=== PATIENT | female | born 1970 | race Hispanic/Latino ===

== ENCOUNTER 2017-09-24 16:53 | Outpatient (CLI) | payer BC ==
--- NOTE | 2017-09-25 09:22 | XRay Report ---
LUMBOSACRAL SPINE, 3 VIEWS: History: Back pain. Findings: Normal bone mineralization. No compression deformity, malalignment or bone lesion. Moderate to severe disc space narrowing and facet arthropathy are identified at L5-S1. Mild disc space narrowing and facet arthropathy are identified at L4-5. Mild facet arthropathy at the remaining 3 levels. Impression: Lumbar spondylosis which is most pronounced at L5-S1.
--- NOTE | 2017-09-25 09:23 | XRay Report ---
THORACIC SPINE, 2 VIEWS: HISTORY: back pain. Normal bone mineralization. No evidence for compression deformity, malalignment, or bone lesion. The posterior ribs are intact. The paraspinal soft tissues are within normal limits. Minimal anterior spurring is noted in the mid to lower thoracic spine. IMPRESSION: Minimal thoracic spondylosis.
--- NOTE | 2017-09-25 09:24 | XRay Report ---
CERVICAL SPINE, 3 views: History: Neck pain. Findings: Normal bone mineralization. There appears to be straightening of the normal lordosis which could be positional. No evidence for displaced fracture, malalignment or bone lesion. Mild to moderate degenerative disc disease is identified at C6-7. Mild degenerative disc disease is identified at C5-6. The remaining disc levels are within normal limits. The facet joints are unremarkable. Impression: Straightening of the normal lordosis. Mild to moderate degenerative disc disease which is most pronounced at C6-7.
== END 2017-09-24 16:54 | disposition home or self-care (01) ==
LOC: XRAY 16:53
PROVIDERS: ATTEND Orthopaedic Surgery
DX: M50.323 Other cervical disc degeneration at C6-C7 level (principal); M50.322 Other cervical disc degeneration at C5-C6 level; M47.894 Other spondylosis, thoracic region; M47.897 Other spondylosis, lumbosacral region; M12.88 Other specific arthropathies, not elsewhere classified, other specified site
CPT/HCPCS: 72040; 72070; 72100

== ENCOUNTER 2019-02-06 10:04 | Outpatient (CLI) | payer BC ==
--- NOTE | 2019-02-06 22:15 | Magnetic Resonance Report ---
PROCEDURE: MR LUMBAR SPINE WO CON HISTORY: LUMBAR PAIN FINDINGS: MRI lumbar spine was performed using sagittal T1, sagittal T2, sagittal inversion recovery, axial T1 and axial T2-weighted images. These images demonstrate the bone marrow signal is diffusely decreased on T1-weighted images consiste nt with hematopoietic marrow. The conus medullaris lies at the level L1-L2 and appears unremarkable. At T12-L1 and L1-L2 the intervertebral disc is normal in height and T2 signal intensity. There are no posterior disc abnormalities. At L2-L3 there is a minimal posterior disc bulge which does not result in canal stenosis. There is mi ld bilateral neural foraminal narrowing without nerve root impingement. At L3-L4 there are no posterior disc abnormalities. At L4-L5, there is subchondral degenerative endplate edema. There is a posterior disc bulge which mil dly effaces the anterior margin of the thecal sac. There is mild bilateral neural foraminal narrowing without nerve root impingement. At L5-S1 there is subchondral degenerative endplate edema. There is a posterior disc bulge which mild ly effaces the anterior margin of thecal sac. There is mild to moderate bilateral neural foraminal na rrowing without nerve root impingement. IMPRESSION: No fracture is seen in the lumbar spine Subchondral degenerative endplate edema at L4-5 and L5-S1 No evidence of canal stenosis or nerve root impingement This document is electronically signed by Ye West MD., February 06 2019 10:13:34 PM ET
== END 2019-02-06 10:05 | disposition home or self-care (01) ==
LOC: MRI 10:04
PROVIDERS: ATTEND Psychiatry & Neurology Neurology
DX: M51.26 Other intervertebral disc displacement, lumbar region (principal); M48.061 Spinal stenosis, lumbar region without neurogenic claudication
CPT/HCPCS: 72148

== ENCOUNTER 2019-03-08 16:34 | Emergency (ER) | payer BC ==
[2019-03-08 16:42] VITALS: BP 114/70
--- NOTE | 2019-03-08 16:43 | Emergency Department Report ---
Blank Doc - Documentation Documentation: This is a 48-year-old female that presents with urinary symptoms. Denies any flank pain. This initial assessment/diagnostic orders/clinical plan/treatment(s) is/are subject to change based on patient's health status, clinical progression and re- assessment by fellow clinical providers in the ED. Further treatment and workup at subsequent clinical providers discretion. Patient/guardians urged not to elope from the ED as their condition may be serious if not clinically assessed and managed. Initial orders include: 1- Patient sent to [facility] for further evaluation and treatment 2- labs 3- UA
[2019-03-08 17:21] LABS: HCG Qualitative,Urine Negative (Negative)
[2019-03-08 17:24] LABS: Bacteria,Urine 1+ /HPF (Negative); Bilirubin,Urine NEG (Negative); Blood,Urine MOD (Negative); Color,Urine Amber (Yellow); Mucus,Urine 3+ /HPF; Renal Epithelial Cells,Urine 4 /LPF; Urobilinogen,Urine < 2.0 mg/dL (<2.0)
[2019-03-08 17:25] LABS: WBC,Urine > 182.0 /HPF (0.0-6.0)
[2019-03-08 17:52] LABS: Basophils % (Auto) 0.2 % (0.0-1.8); Hematocrit 41.5 % (30.3-42.9); Hemoglobin 13.9 gm/dl (10.1-14.3); Lymphocytes # (Auto) 1.1 K/mm3 (1.2-5.4); Mean Corpuscular HGB Conc 33 % (30-34); Mean Corpuscular Volume 93 fl (79-97); Monocytes # (Auto) 1.4 K/mm3 (0.0-0.8); Monocytes % (Auto) 7.8 % (0.0-7.3); Platelet Count 296 K/mm3 (140-440); Red Blood Count 4.47 M/mm3 (3.65-5.03); Red Cell Distribution Width 13.6 % (13.2-15.2)
[2019-03-08] MEDS ORDERED: NACL 0.9% 1000 ML 1,000 ML IV ONE (18:14)
[2019-03-08 18:19] LABS: Alanine Aminotransferase 33 units/L (7-56); Albumin 4.3 g/dL (3.9-5); BUN/Creatinine Ratio 14; Blood Urea Nitrogen 11 mg/dL (7-17); Calcium 9.2 mg/dL (8.4-10.2); Hemolysis Index 4
--- NOTE | 2019-03-08 19:41 | Emergency Department Report ---
ED Female HPI - General Chief complaint: Urogenital-Female Stated complaint: FEVER/CLOUDY URINE Time Seen by Provider: 03/08/19 16:40 Source: patient Mode of arrival: Ambulatory Limitations: No Limitations - History of Present Illness Initial comments: This is a 48-year-old female who presents to the emergency room with fever, nausea, and cloudy urine for 10 days. Patient states she was initially taken Azo and was seen in urgent care last week and placed on Bactrim for urinary tract infection. Patient states she received Rocephin IM. Patient states fever improved but returned yesterday with nausea without vomiting. She reports lower back pain and left sided abdominal pain. She denies diarrhea, dysuria, urinary frequency, and urgency. MD Complaint: pelvic pain Onset/Timin -: days(s) Location: suprapubic Radiation: non-radiating Severity: moderate Severity scale (0 -10): 4 Quality: sharp Consistency: intermittent Improves with: none Worsens with: none Are you Now?: No Associated Symptoms: abdominal pain, nausea/vomiting, fever/chills. denies: vaginal discharge, vaginal bleeding, headaches, loss of appetite, dysuria, hematuria, rash, seizure, shortness of breath, syncope, weakness - Related Data Sexually active: Yes Previous Rx's Medication Instructions Recorded Last Taken Type Ciprofloxacin HCl [Ciprofloxacin 500 mg PO Q12HR #20 tab 03/09/19 Unknown Rx TAB] Naproxen [Naprosyn] 500 mg PO TID PRN #20 tablet 03/09/19 Unknown Rx Ondansetron [Zofran Odt] 4 mg PO Q8HR PRN #20 tab.rapdis 03/09/19 Unknown Rx Polyethylene Glycol/Elect 4,000 ml PO ONCE #1 bottle 03/09/19 Unknown Rx [Golytely] Allergies Allergy/AdvReac Type Severity Reaction Status Date / Time No Known Allergies Allergy Unverified 03/08/19 16:39 ED Review of Systems ROS: Stated complaint: FEVER/CLOUDY URINE Other details as noted in HPI Constitutional: chills, fever Respiratory: denies: cough, shortness of breath, wheezing Cardiovascular: denies: chest pain, palpitations Gastrointestinal: abdominal pain, nausea. denies: vomiting, diarrhea Genitourinary: denies: urgency, dysuria, discharge Musculoskeletal: back pain. denies: joint swelling, arthralgia Skin: denies: rash, lesions Neurological: denies: headache, weakness, paresthesias Psychiatric: denies: anxiety, depression ED Past Medical Hx - Past Medical History Previous Medical History?: No - Surgical History Past Surgical History?: Yes Additional Surgical History: hysterectomy - Social History Smoking Status: Never Smoker - Medications Home Medications: Home Medications Medication Instructions Recorded Confirmed Last Taken Type Ciprofloxacin HCl [Ciprofloxacin 500 mg PO Q12HR #20 tab 03/09/19 Unknown Rx TAB] Naproxen [Naprosyn] 500 mg PO TID PRN #20 tablet 03/09/19 Unknown Rx Ondansetron [Zofran Odt] 4 mg PO Q8HR PRN #20 tab.rapdis 03/09/19 Unknown Rx Polyethylene Glycol/Elect 4,000 ml PO ONCE #1 bottle 03/09/19 Unknown Rx [Golytely] ED Physical Exam - General Limitations: No Limitations General appearance: alert, in no apparent distress - Respiratory Respiratory exam: Present: normal lung sounds bilaterally. Absent: respiratory distress - Cardiovascular Cardiovascular Exam: Present: regular rate, normal rhythm. Absent: systolic murmur, diastolic murmur, rubs, gallop - GI/Abdominal GI/Abdominal exam: Present: soft, tenderness (left lower quadrant), normal bowel sounds. Absent: distended, guarding, rebound, rigid, organomegaly, mass, bruit, pulsatile mass - Back Exam Back exam: Present: full ROM. Absent: CVA tenderness (R), CVA tenderness (L) - Neurological Exam Neurological exam: Present: alert, oriented X3, normal gait - Psychiatric Psychiatric exam: Present: normal affect, normal mood - Skin Skin exam: Present: warm, dry, intact, normal color. Absent: rash ED Course Vital Signs 03/08/19 03/08/19 16:41 18:39 Temperature 99.3 F Pulse Rate 113 H Respiratory 20 15 Rate Blood Pressure 114/70 O2 Sat by Pulse 95 Oximetry ED Medical Decision Making - Lab Data Result diagrams: 03/08/19 17:26 03/08/19 17:26 Lab Results 03/08/19 03/08/19 03/08/19 Range/Units 16:50 17:26 17:26 WBC 17.9 H (4.5-11.0) K/mm3 RBC 4.47 (3.65-5.03) M/mm3 Hgb 13.9 (10.1-14.3) gm/dl Hct 41.5 (30.3-42.9) % MCV 93 (79-97) fl MCH 31 (28-32) pg MCHC 33 (30-34) % RDW 13.6 (13.2-15.2) % Plt Count 296 (140-440) K/mm3 Lymph % (Auto) 6.0 L (13.4-35.0) % [place] % (Auto) 7.8 H (0.0-7.3) % Eos % (Auto) 0.0 (0.0-4.3) % Baso % (Auto) 0.2 (0.0-1.8) % Lymph # 1.1 L (1.2-5.4) K/mm3 [place] # 1.4 H (0.0-0.8) K/mm3 Eos # 0.0 (0.0-0.4) K/mm3 Baso # 0.0 (0.0-0.1) K/mm3 Seg Neutrophils % 86.0 H (40.0-70.0) % Seg Neutrophils # 15.4 H (1.8-7.7) K/mm3 Sodium 138 (137-145) mmol/L Potassium 3.9 (3.6-5.0) mmol/L Chloride 99.3 (98-107) mmol/L Carbon Dioxide 25 (22-30) mmol/L Anion Gap 18 mmol/L BUN 11 (7-17) mg/dL Creatinine 0.8 (0.7-1.2) mg/dL Estimated GFR > 60 ml/min BUN/Creatinine Ratio 14 % Glucose 126 H (65-100) mg/dL Lactic Acid (0.7-2.0) mmol/L Calcium 9.2 (8.4-10.2) mg/dL Total Bilirubin 0.70 (0.1-1.2) mg/dL AST 22 (5-40) units/L ALT 33 (7-56) units/L Alkaline Phosphatase 62 (35-129) units/L Total Protein 7.9 (6.3-8.2) g/dL Albumin 4.3 (3.9-5) g/dL Albumin/Globulin Ratio 1.2 % Urine Color [place] (Yellow) Urine Turbidity Slightly-cloudy (Clear) Urine pH 6.0 (5.0-7.0) Ur Specific [place] 1.017 (1.003-1.030) Urine Protein 30 mg/dl (Negative) mg/dL Urine Glucose (UA) Neg (Negative) mg/dL Urine Ketones 20 (Negative) mg/dL Urine Blood Mod (Negative) Urine Nitrite Neg (Negative) Ur Reducing Substances Not Reportable Urine Bilirubin Neg (Negative) Urine Ictotest Not Reportable Urine Urobilinogen < 2.0 (<2.0) mg/dL Ur Leukocyte Esterase Lg (Negative) Urine WBC (Auto) > 182.0 H (0.0-6.0) /HPF Urine RBC (Auto) 27.0 (0.0-6.0) /HPF U Epithel Cells (Auto) 2.0 (0-13.0) /HPF Urine Bacteria (Auto) 1+ (Negative) /HPF Ur Renal Epithelial Cell 4 /LPF Urine Mucus 3+ /HPF Urine HCG, Qual Negative (Negative) 03/08/19 03/08/19 Range/Units 17:26 21:12 WBC (4.5-11.0) K/mm3 RBC (3.65-5.03) M/mm3 Hgb (10.1-14.3) gm/dl Hct (30.3-42.9) % MCV (79-97) fl MCH (28-32) pg MCHC (30-34) % RDW (13.2-15.2) % Plt Count (140-440) K/mm3 Lymph % (Auto) (13.4-35.0) % [place] % (Auto) (0.0-7.3) % Eos % (Auto) (0.0-4.3) % Baso % (Auto) (0.0-1.8) % Lymph # (1.2-5.4) K/mm3 [place] # (0.0-0.8) K/mm3 Eos # (0.0-0.4) K/mm3 Baso # (0.0-0.1) K/mm3 Seg Neutrophils % (40.0-70.0) % Seg Neutrophils # (1.8-7.7) K/mm3 Sodium (137-145) mmol/L Potassium (3.6-5.0) mmol/L Chloride (98-107) mmol/L Carbon Dioxide (22-30) mmol/L Anion Gap mmol/L BUN (7-17) mg/dL Creatinine (0.7-1.2) mg/dL Estimated GFR ml/min BUN/Creatinine Ratio % Glucose (65-100) mg/dL Lactic Acid 0.90 0.70 (0.7-2.0) mmol/L Calcium (8.4-10.2) mg/dL Total Bilirubin (0.1-1.2) mg/dL AST (5-40) units/L ALT (7-56) units/L Alkaline Phosphatase (35-129) units/L Total Protein (6.3-8.2) g/dL Albumin (3.9-5) g/dL Albumin/Globulin Ratio % Urine Color (Yellow) Urine Turbidity (Clear) Urine pH (5.0-7.0) Ur Specific [place] (1.003-1.030) Urine Protein (Negative) mg/dL Urine Glucose (UA) (Negative) mg/dL Urine Ketones (Negative) mg/dL Urine Blood (Negative) Urine Nitrite (Negative) Ur Reducing Substances Urine Bilirubin (Negative) Urine Ictotest Urine Urobilinogen (<2.0) mg/dL Ur Leukocyte Esterase (Negative) Urine WBC (Auto) (0.0-6.0) /HPF Urine RBC (Auto) (0.0-6.0) /HPF U Epithel Cells (Auto) (0-13.0) /HPF Urine Bacteria (Auto) (Negative) /HPF Ur Renal Epithelial Cell /LPF Urine Mucus /HPF Urine HCG, Qual (Negative) - Radiology Data Radiology results: report reviewed PROCEDURE: CT ABDOMEN PELVIS W CON TECHNIQUE: Computerized axial tomography of the abdomen and pelvis was performed after the IV injection of iodinated nonionic contrast. CT DOSE LENGTH PRODUCT: 2128.2 mGycm HISTORY: diffuse tenderness COMPARISONS: None . FINDINGS: Lower Lung roberson: No focal abnormalities seen. Upper Abdomen: The liver and gallbladder show no abnormalities. The adrenal glands and the pancreas as well as the spleen are unremarkable. Kidneys, Ureters and Urinary bladder: There is a nonobstructing calculus in the upper third of the left kidney measuring 6.5 x 4.1 mm. There is no hydronephrosis on the left or right. No ureteral calculi are seen. The urinary bladder is unremarkable. In the midportion of the left kidney laterally there is a slightly ill-defined low-density nodule in the renal cortex of the left kidney. This measures 1.8 cm greatest diameter. There is a heterogeneous decreased density in the adjacent renal parenchyma seen best on the axial images. Etiology of the nodule is uncertain. This could represent a cyst, hemorrhagic cyst or infected cyst. Given the heterogeneous density in the adjacent left kidney I cannot exclude pyelonephritis. Small renal cortical cyst suspected in the midportion of the left kidney posteriorly measuring 1.1 cm. Retroperitoneum: Atherosclerotic changes are seen in the abdominal aorta. No aneurysm is visualized. Nonspecific subcentimeter lymph nodes are seen in the retroperitoneum. No pathologically enlarged lymph nodes are identified. Bowel: Moderate amount of stool seen in the large portions of the colon. The rectum is distended with stool. No obstruction nor ascites. There is no free intraperitoneal gas. Normal-appearing a ppendix seen right lower quadrant. Reproductive organs: Uterus is surgically absent. No abnormal adnexal masses are seen. Other: Degenerative changes are seen in the lumbar spine. No acute bone abnormalities are visualized. IMPRESSION: Nonobstructing calculus upper third left kidney. No hydronephrosis. Slightly ill-defined low-density nodule in the left kidney. This could represent a simple cyst, hemorrhagic cyst, infected cyst. There is also heterogeneous decreased density in the adjacent renal parenchyma. I cannot exclude pyelonephritis. Correlation with urinalysis recommended. Also consider follow-up renal ultrasound to further characterize the low-density lesion in the left kidney. There is also a small, 1.1 cm cyst in the mid third of the left kidney. Stool pattern as described. The rectum is significantly distended. The patient may be impacted. Prior hysterectomy. - Medical Decision Making Patient was examined by me. Vitals are normal and patient is in no acute distress. Obtained labs and CT of abdomen and pelvis. Leukocytosis, UA moderate blood and large leukocytes estrease. All other labs unrearkable. CT dictated by radiologist and no acute findings. Nonobstructing calculus upper third left kidney. No hydronephrosis. Slightly ill-defined low-density nodule in the left kidney. This could represent a simple cyst, hemorrhagic cyst, infected cyst. There is also heterogeneous decreased density in the adjacent renal parenchyma. I cannot exclude pyelonephritis. Correlation with urinalysis recommended. Also consider follow-up renal ultrasound to further characterize the low-density lesion in the left kidney. There is also a small, 1.1 cm cyst in the mid third of the left kidney. Stool pattern as described. The rectum is significantly distended. The patient may be impacted. Prior hysterectomy. Patient informed of results. Patient reports bowl movement small balls while in ER. Patient will be treated by constipation and pyelonephritis. Given rocephin 1 gram and normal saline while in ER. Start cipro, zofran, docusate sodium, and GoLYTELY. Plan discussed with patient to discharge home and treat outpatient. She agrees with ER plan. Patient discharged home in stable condition. Follow up with PCP in 2-3 days. Critical care attestation.: If time is entered above; I have spent that time in minutes in the direct care of this critically ill patient, excluding procedure time. ED Disposition Clinical Impression: Pyelonephritis, Fever and chills Abdominal pain Qualifiers: Abdominal location: left lower quadrant Qualified Code(s): R10.32 - Left lower quadrant pain Constipation Qualifiers: Constipation type: slow transit constipation Qualified Code(s): K59.01 - Slow transit constipation Disposition: DC- TO HOME OR SELFCARE Is pt being admited?: No Does the pt Need Aspirin: No Condition: Stable Instructions: Constipation (ED), High Fiber Diet (ED), Acute Pyelonephritis (ED) Additional Instructions: Increase fluid intake to 1L to 2L daily and drink or eat prunes. Complete full course of antibiotics as prescribed. Avoid drinking alcohol while taking antibiotics and for 24 hours after completion. Increase fiber intake with foods and/or metamucil. Take colace daily to soften stool. Follow up with primary care provider in 2-3 days. Prescriptions: Ciprofloxacin HCl [Ciprofloxacin TAB] 500 mg PO Q12HR #20 tab Polyethylene Glycol/Elect [Golytely] 4,000 ml PO ONCE #1 bottle Naproxen [Naprosyn] 500 mg PO TID PRN #20 tablet PRN Reason: Pain, Moderate (4-6) Ondansetron [Zofran Odt] 4 mg PO Q8HR PRN #20 tab.rapdis PRN Reason: Nausea And Vomiting Referrals: SHAILA GOOD MD [Staff Physician] - 3-5 Days [facility] [Provider Group] - 3-5 Days [facility] [Provider Group] - 3-5 Days Forms: Work/School Release Form(ED) Time of Disposition: 00:36
--- NOTE | 2019-03-08 22:35 | Cat Scan Report ---
PROCEDURE: CT ABDOMEN PELVIS W CON TECHNIQUE: Computerized axial tomography of the abdomen and pelvis was performed after the IV inject ion of iodinated nonionic contrast. CT DOSE LENGTH PRODUCT: 2128.2 mGycm HISTORY: diffuse tenderness COMPARISONS: None . FINDINGS: Lower Lung roberson: No focal abnormalities seen. Upper Abdomen: The liver and gallbladder show no abnormalities. The adrenal glands and the pancreas as well as the spleen are unremarkable. Kidneys, Ureters and Urinary bladder: There is a nonobstructing calculus in the upper third of the l eft kidney measuring 6.5 x 4.1 mm. There is no hydronephrosis on the left or right. No ureteral calcu li are seen. The urinary bladder is unremarkable. In the midportion of the left kidney laterally there is a slightly ill-defined low-density nodule in the renal cortex of the left kidney. This measures 1.8 cm greatest diameter. There is a heterogeneous decreased density in the adjacent renal parenchyma seen best on the axial images. Etiology of the no dule is uncertain. This could represent a cyst, hemorrhagic cyst or infected cyst. Given the heteroge neous density in the adjacent left kidney I cannot exclude pyelonephritis. Small renal cortical cyst suspected in the midportion of the left kidney posteriorly measuring 1.1 cm . Retroperitoneum: Atherosclerotic changes are seen in the abdominal aorta. No aneurysm is visualized. Nonspecific subcentimeter lymph nodes are seen in the retroperitoneum. No pathologically enlarged ly mph nodes are identified. Bowel: Moderate amount of stool seen in the large portions of the colon. The rectum is distended wit h stool. No obstruction nor ascites. There is no free intraperitoneal gas. Normal-appearing appendix seen right lower quadrant. Reproductive organs: Uterus is surgically absent. No abnormal adnexal masses are seen. Other: Degenerative changes are seen in the lumbar spine. No acute bone abnormalities are visualized. IMPRESSION: Nonobstructing calculus upper third left kidney. No hydronephrosis. Slightly ill-defined low-density nodule in the left kidney. This could represent a simple cyst, hemor rhagic cyst, infected cyst. There is also heterogeneous decreased density in the adjacent renal paren chyma. I cannot exclude pyelonephritis. Correlation with urinalysis recommended. Also consider follow -up renal ultrasound to further characterize the low-density lesion in the left kidney. There is also a small, 1.1 cm cyst in the mid third of the left kidney. Stool pattern as described. The rectum is significantly distended. The patient may be impacted. Prior hysterectomy. This document is electronically signed by Jakob Aguirre MD., Mar 08 2019 10:33:39 PM ET
[2019-03-08] MEDS ORDERED: ROCEPHIN/NS 1 GM/50 ML 1 GM/50 ML BAG IV ONE (23:05)
== END 2019-03-09 00:55 | disposition home or self-care (01) ==
LOC: ED 16:34
DX: N12 Tubulo-interstitial nephritis, not specified as acute or chronic (principal); K59.01 Slow transit constipation; Z90.710 Acquired absence of both cervix and uterus
CPT/HCPCS: 36415; 74177; 80053; 81001; 81025; 82140; 85025; 87040; 87086; 96365; 99284; J0696; J7030; Q9967

== ENCOUNTER 2020-09-16 14:34 | Outpatient (CLI) | payer BC ==
[2020-09-16 15:12] LABS: Basophils % (Auto) 0.3 % (0.0-1.8); Eosinophils # (Auto) 0.2 K/mm3 (0.0-0.4); Eosinophils % (Auto) 2.3 % (0.0-4.3); Hematocrit 35.6 % (30.3-42.9); Hemoglobin 12.6 gm/dl (10.1-14.3); Lymphocytes # (Auto) 1.8 K/mm3 (1.2-5.4); Lymphocytes % (Auto) 27.9 % (13.4-35.0); Mean Corpuscular HGB Conc 35 % (30-34); Mean Corpuscular Volume 91 fl (79-97); Monocytes # (Auto) 0.6 K/mm3 (0.0-0.8); Monocytes % (Auto) 8.6 % (0.0-7.3); Platelet Count 325 K/mm3 (140-440); Red Blood Count 3.92 M/mm3 (3.65-5.03); Red Cell Distribution Width 13.5 % (13.2-15.2)
[2020-09-16 15:19] LABS: Alanine Aminotransferase 16 units/L (7-56); Albumin 3.9 g/dL (3.9-5); Blood Urea Nitrogen 12 mg/dL (7-17); Calcium 8.6 mg/dL (8.4-10.2); Chol/HDL Ratio 3.85 %; HDL Cholesterol 49 mg/dL (40-59); Hemolysis Index 4; LDL Cholesterol,Direct 129 mg/dL (50-130)
[2020-09-16 15:32] LABS: BUN/Creatinine Ratio 17
== END 2020-09-16 14:35 | disposition home or self-care (01) ==
LOC: LAB 14:34
PROVIDERS: ATTEND Internal Medicine
DX: E56.9 Vitamin deficiency, unspecified (principal); E55.9 Vitamin D deficiency, unspecified
CPT/HCPCS: 36415; 80053; 80061; 82306; 82607; 83036; 84443; 85025

== ENCOUNTER 2020-10-08 12:00 | Outpatient (CLI) | payer BC ==
--- NOTE | 2020-10-08 17:12 | Mammography Report ---
DIGITAL SCREENING MAMMOGRAM WITH CAD, 10/08/2020 CLINICAL INFORMATION / INDICATION: Routine screening mammography. TECHNIQUE: Digital bilateral 2D mammography was obtained in the craniocaudal and mediolateral obliqu e projections. This examination was interpreted with the benefit of Computer-Aided Detection analysis . COMPARISON: None available FINDINGS: Breast Density: There are scattered areas of fibroglandular density. No dominant mass, suspicious calcifications, or architectural distortion in either breast. IMPRESSION: No mammographic evidence of malignancy. Follow up recommendation: Routine yearly BI-RADS Category 1: Negative. A "normal" or negative report should not discourage follow up or biopsy of a clinically significant f inding. A written summary of these findings will be mailed to the patient. The patient will be entered into a mammography reporting system which will generate a reminder letter for the patient's next appointmen t at the appropriate interval. The [employer] recommends yearly mammograms starting at age 40 and continuing as l marc as a woman is in good health. Breast MRI is recommended for women with an approximate 20-25% or greater lifetime risk of breast cancer, including women with a strong family history of breast or ova alfredo cancer or who have been treated for Hodgkin's disease. Signer Name: Hermila Arreola MD Signed: 10/08/2020 5:08 PM Workstation Name: [id number]
== END 2020-10-08 12:01 | disposition home or self-care (01) ==
LOC: MAMMO 12:00
PROVIDERS: ATTEND Internal Medicine
DX: Z12.31 Encounter for screening mammogram for malignant neoplasm of breast (principal)
CPT/HCPCS: 77067

== ENCOUNTER 2021-08-05 14:30 | Inpatient (IN) | payer BC ==
--- NOTE | 2021-08-05 15:39 | Event Note ---
ED Screening Note ED Screening Note: Patient is a 50-year-old female presents emergency room with complaints of episodes of near syncope that have been occurring 5 days ago She states that she has been having 10 episodes a day She denies any dizziness She states that she also has been having had pressure and decreased hearing in her left ear Past medical history of vertigo but states that it feels different She states that she has gained weight and has noticed her blood pressure is elevated but has never been diagnosed with hypertension She denies any chest pain, shortness of breath, fever, vomiting, diarrhea This initial assessment/diagnostic orders/clinical plan/treatment(s) is/are subject to change based on patients health status, clinical progression and re- assessment by fellow clinical providers in the ED. Further treatment and workup at subsequent clinical providers discretion. Patient/guardian urged not to elope from the ED as their condition may be serious if not clinically assessed and managed. Initial orders include: Labs, CT, EKG
[2021-08-05 16:06] LABS: Basophils % (Auto) 0.4 % (0.0-1.8); Eosinophils # (Auto) 0.1 K/mm3 (0.0-0.4); Eosinophils % (Auto) 2.3 % (0.0-4.3); Hematocrit 40.5 % (30.3-42.9); Hemoglobin 13.8 gm/dl (10.1-14.3); Lymphocytes # (Auto) 1.8 K/mm3 (1.2-5.4); Mean Corpuscular HGB Conc 34 % (30-34); Mean Corpuscular Volume 91 fl (79-97); Monocytes # (Auto) 0.5 K/mm3 (0.0-0.8); Monocytes % (Auto) 8.9 % (0.0-7.3); Platelet Count 343 K/mm3 (140-440); Red Blood Count 4.44 M/mm3 (3.65-5.03); Red Cell Distribution Width 14.2 % (13.2-15.2)
[2021-08-05 16:21] LABS: Alanine Aminotransferase 22 units/L (7-56); Albumin 4.5 g/dL (3.9-5); Blood Urea Nitrogen 13 mg/dL (7-17); Calcium 9.5 mg/dL (8.4-10.2); Hemolysis Index 86
--- NOTE | 2021-08-05 16:23 | Emergency Department Report ---
ED General Adult HPI - General Chief complaint: Dizziness Stated complaint: Blurry vision, loss of hearing, off balance, near syncope PUI?: No Time Seen by Provider: 08/05/21 15:37 Source: patient, RN notes reviewed, old records reviewed Mode of arrival: Ambulatory Limitations: No Limitations - History of Present Illness Initial comments: The patient was evaluated in the emergency department for symptoms described in the history of present illness. He/she was evaluated in the context of the global COVID-19 pandemic, which necessitated consideration that the patient might be at risk for infection with the virus that causes COVID-19. Institutional protocols and algorithms that pertain to the evaluation of patients at risk for COVID-19 are in a state of rapid change based on information released by regulatory bodies including the CDC and federal and state organizations. These policies and algorithms were followed during the patient's care in the emergency department. Please note that these policies, procedures and recommendations changed on a rapid basis. The patient is a 50-year-old female. She is not known to myself previously. She reports that she is not . The patient presents to the ER today with a complaint of 3 days feeling off balance, binocular blurry vision, nontraumatic and painless left-sided auditory loss, and multiple episodes of near syncope/near fainting, over the past few days. She denies physical pain. She denies travel, surgery, immobilization, DVT and pulmonary embolism risk factors. Reports no new medications. Reports no Covid symptoms. Reports a significant family history in her brother, who had a premature stroke at the age of 48. No recent automotive accidents, chiropractic manipulation. Currently denies headache and neck pain as well as chest pain and abdominal pain. Endorses chronic back pain -: days(s) Consistency: intermittent Improves with: none Worsens with: none Associated Symptoms: denies other symptoms - Related Data Previous Rx's Medication Instructions Recorded Last Taken Type Ciprofloxacin HCl [Ciprofloxacin 500 mg PO Q12HR #20 tab 03/09/19 Unknown Rx TAB] Naproxen [Naprosyn] 500 mg PO TID PRN #20 tablet 03/09/19 Unknown Rx Ondansetron [Zofran Odt] 4 mg PO Q8HR PRN #20 tab.rapdis 03/09/19 Unknown Rx Polyethylene Glycol/Elect 4,000 ml PO ONCE #1 bottle 03/09/19 Unknown Rx [Golytely] Allergies Allergy/AdvReac Type Severity Reaction Status Date / Time No Known Allergies Allergy Unverified 03/08/19 16:39 ED Review of Systems ROS: Stated complaint: SEVERE DIZZNESS Other details as noted in HPI Constitutional: denies: fever, malaise Eyes: vision change. denies: eye pain, eye discharge ENT: denies: epistaxis Respiratory: denies: cough Cardiovascular: syncope (Multiple episodes of near syncope). denies: chest pain Gastrointestinal: denies: abdominal pain, nausea, vomiting, hematemesis, melena, hematochezia Neurological: abnormal gait. denies: headache, weakness, numbness, paresthes ias, confusion, vertigo Hematological/Lymphatic: denies: easy bleeding ED Past Medical Hx - Past Medical History Previous Medical History?: No - Surgical History Past Surgical History?: Yes Additional Surgical History: hysterectomy - Social History Smoking Status: Never Smoker - Medications Home Medications: Home Medications Medication Instructions Recorded Confirmed Last Taken Type Ciprofloxacin HCl [Ciprofloxacin 500 mg PO Q12HR #20 tab 03/09/19 Unknown Rx TAB] Naproxen [Naprosyn] 500 mg PO TID PRN #20 tablet 03/09/19 Unknown Rx Ondansetron [Zofran Odt] 4 mg PO Q8HR PRN #20 tab.rapdis 03/09/19 Unknown Rx Polyethylene Glycol/Elect 4,000 ml PO ONCE #1 bottle 03/09/19 Unknown Rx [Golytely] ED Physical Exam - General Limitations: No Limitations General appearance: alert, in no apparent distress - Head Head exam: Present: atraumatic, normocephalic - Eye Eye exam: Present: normal appearance, PERRL, EOMI, other (Visual acuity intact to finger counting, color perception, reading at a close distance). Absent: nystagmus - ENT ENT exam: Present: normal exam, normal orophraynx, mucous membranes moist, TM's normal bilaterally, normal external ear exam, other (There is no mastoid tenderness) - Neck Neck exam: Present: normal inspection, full ROM. Absent: tenderness, menin gismus - Respiratory Respiratory exam: Present: normal lung sounds bilaterally. Absent: respiratory distress, wheezes, rales, rhonchi, stridor, decreased breath sounds - Cardiovascular Cardiovascular Exam: Present: regular rate, normal rhythm, normal heart sounds. Absent: bradycardia, tachycardia, irregular rhythm, systolic murmur, diastolic murmur, rubs, gallop - GI/Abdominal GI/Abdominal exam: Present: soft. Absent: distended, tenderness, guarding, rebound, rigid, pulsatile mass - Extremities Exam Extremities exam: Present: normal inspection, full ROM, other (2+ pulses noted in the bilateral upper and lower extremities. There is no palpable cord. negative Homans sign. Muscular compartments are soft. The pelvis is stable.). Absent: pedal edema, calf tenderness - Back Exam Back exam: Present: normal inspection, full ROM. Absent: tenderness, CVA tenderness (R), CVA tenderness (L), paraspinal tenderness, vertebral tenderness - Neurological Exam Neurological exam: Present: alert, oriented X3, normal gait, other (There is no facial droop. The tongue is midline. Extraocular movements are intact bilaterally. There is 5 out of 5 strength in bilateral upper and lower extremities. Sensation is intact to light touch bilateral upper and lower extremities. There is no past-pointing. There is no pronator drift.). Absent: motor sensory deficit - Psychiatric Psychiatric exam: Present: normal affect, normal mood - Skin Skin exam: Present: warm, dry, intact, normal color. Absent: rash ED Course Vital Signs 08/05/21 08/05/21 14:56 15:10 Temperature 97.7 F Pulse Rate 78 Respiratory 18 Rate Blood Pressure 152/101 O2 Sat by Pulse 97 100 Oximetry - Reevaluation(s) Reevaluation #1: 08/05/21 18:14 The patient reported to me that she is not . Quant hCG of 5 nonspecific. No abdominal pain, complaints or tenderness. I will defer to the inpatient team to further evaluate and manage. Expectant management in the emergency room. ED Medical Decision Making - Lab Data Result diagrams: 08/05/21 15:45 08/05/21 15:45 Vital Signs 08/05/21 08/05/21 14:56 15:10 Temperature 97.7 F Pulse Rate 78 Respiratory 18 Rate Blood Pressure 152/101 O2 Sat by Pulse 97 100 Oximetry Lab Results 08/05/21 08/05/21 08/05/21 Range/Units 15:45 15:45 16:42 WBC 5.8 (4.5-11.0) K/mm3 RBC 4.44 (3.65-5.03) M/mm3 Hgb 13.8 (10.1-14.3) gm/dl Hct 40.5 (30.3-42.9) % MCV 91 (79-97) fl MCH 31 (28-32) pg MCHC 34 (30-34) % RDW 14.2 (13.2-15.2) % Plt Count 343 (140-440) K/mm3 Lymph % (Auto) 30.0 (13.4-35.0) % [place] % (Auto) 8.9 H (0.0-7.3) % Eos % (Auto) 2.3 (0.0-4.3) % Baso % (Auto) 0.4 (0.0-1.8) % Lymph # (Auto) 1.8 (1.2-5.4) K/mm3 [place] # (Auto) 0.5 (0.0-0.8) K/mm3 Eos # (Auto) 0.1 (0.0-0.4) K/mm3 Baso # (Auto) 0.0 (0.0-0.1) K/mm3 Seg Neutrophils % 58.4 (40.0-70.0) % Seg Neutrophils # 3.4 (1.8-7.7) K/mm3 Sodium 139 (137-145) mmol/L Potassium 4.3 (3.6-5.0) mmol/L Chloride 101.8 (98-107) mmol/L Carbon Dioxide 25 (22-30) mmol/L Anion Gap 17 mmol/L BUN 13 (7-17) mg/dL Creatinine 0.7 (0.6-1.2) mg/dL Estimated GFR > 60 ml/min BUN/Creatinine Ratio 19 % Glucose 98 (65-100) mg/dL Calcium 9.5 (8.4-10.2) mg/dL Magnesium 2.00 2.00 (1.7-2.3) mg/dL Total Bilirubin 0.40 (0.1-1.2) mg/dL AST 22 (5-40) units/L ALT 22 (7-56) units/L Alkaline Phosphatase 75 (35-129) units/L Total Creatine Kinase 92 (30-135) units/L Troponin T < 0.010 (0.00-0.029) ng/mL Total Protein 8.1 (6.3-8.2) g/dL Albumin 4.5 (3.9-5) g/dL Albumin/Globulin Ratio 1.3 % TSH (0.270-4.200) mlU/mL HCG, Quant (0-4) mIU/mL 08/05/21 08/05/21 Range/Units 16:42 16:42 WBC (4.5-11.0) K/mm3 RBC (3.65-5.03) M/mm3 Hgb (10.1-14.3) gm/dl Hct (30.3-42.9) % MCV (79-97) fl MCH (28-32) pg MCHC (30-34) % RDW (13.2-15.2) % Plt Count (140-440) K/mm3 Lymph % (Auto) (13.4-35.0) % [place] % (Auto) (0.0-7.3) % Eos % (Auto) (0.0-4.3) % Baso % (Auto) (0.0-1.8) % Lymph # (Auto) (1.2-5.4) K/mm3 [place] # (Auto) (0.0-0.8) K/mm3 Eos # (Auto) (0.0-0.4) K/mm3 Baso # (Auto) (0.0-0.1) K/mm3 Seg Neutrophils % (40.0-70.0) % Seg Neutrophils # (1.8-7.7) K/mm3 Sodium (137-145) mmol/L Potassium (3.6-5.0) mmol/L Chloride (98-107) mmol/L Carbon Dioxide (22-30) mmol/L Anion Gap mmol/L BUN (7-17) mg/dL Creatinine (0.6-1.2) mg/dL Estimated GFR ml/min BUN/Creatinine Ratio % Glucose (65-100) mg/dL Calcium (8.4-10.2) mg/dL Magnesium (1.7-2.3) mg/dL Total Bilirubin (0.1-1.2) mg/dL AST (5-40) units/L ALT (7-56) units/L Alkaline Phosphatase (35-129) units/L Total Creatine Kinase (30-135) units/L Troponin T (0.00-0.029) ng/mL Total Protein (6.3-8.2) g/dL Albumin (3.9-5) g/dL Albumin/Globulin Ratio % TSH 0.569 (0.270-4.200) mlU/mL HCG, Quant 5.43 H (0-4) mIU/mL - EKG Data -: EKG Interpreted by Md EKG shows normal: sinus rhythm Rate: normal - EKG Data 08/05/21 18:10 EKG is interpreted at 15: 16 Sinus rhythm, 72 bpm. Normal axis, normal intervals, motion artifact, borderline left ventricular hypertrophy. Abnormal EKG. Not a STEMI. There is no prior for comparison - Radiology Data Radiology results: pending, report reviewed, image reviewed CT BRAIN: 08/05/2021 INDICATION / CLINICAL INFORMATION: head pressure, dec hearing L ear, near syncope. COMPARISON: None available. FINDINGS: BRAIN/INTRACRANIAL STRUCTURES: Unenhanced CT images of the brain demonstrate no evidence of acute abnormality. Ventricles and sulci are normal in size and shape for a patient of this age. There is no CT evidence of acute ischemic injury, hemorrhage, or mass. There are no abnormal extra-axial fluid collections. There is no gross abnormality of the temporal bones noted. E XTRACRANIAL STRUCTURES: Unremarkable. IMPRESSION: Negative unenhanced CT of the brain. All CT scans at this location are performed using dose reduction to ALARA by means of automated exposure control. Signer Name: Nadeem Rivera MD Signed: 08/05/2021 3:51 PM - Medical Decision Making Differential diagnosis, including but not limited to: Subacute stroke, orthostasis, vagal event, structural cardiac disease electrolyte derangement Assessment and plan: 50-year-old female, who was afebrile, with reassuring vital signs with exception of elevated blood pressure, who is not currently tachycardic, tachypneic or hypoxic, who denies DVT and pulmonary embolism risk factors, who is low risk by Wells criteria for pulmonary embolism, who is PERC negative, with a GCS of 15, NIH score of 0, with a complaint of multiple episodes of near syncope, binocular blurry vision, loss of auditory acuity, and subjective ataxia. Symptoms present for 3 days. She has an NIH score of 0. She is therefore not a TPA candidate. Symptoms present for greater than 24 hours. She has an unremarkable neurologic examination. Therefore, emergent CT angiographic imaging not indicated. The patient is a very difficult IV stick. We are not able to obtain 20-gauge IV access for CT angiogram. Patient evaluated by Dr. Donaldson, neurology. He did agree that it would be reasonable to obtain a CT angiogram in the ER, but if we are unable to do so, he advised that it would also be acceptable to have the patient admitted for inpatient MRI, MRA, and further work-up and evaluation to differentiate TIA symptoms versus near syncope. I discussed this plan of care with the patient. She is agreeable to this plan of care. [facility] physician, Dr. Moran to admit the patient to the medical service. Critical care attestation.: If time is entered above; I have spent that time in minutes in the direct care of this critically ill patient, excluding procedure time. ED Disposition Clinical Impression: Visual disturbance, History of unsteady gait, Near syncope, Hearing problem of left ear Disposition: ADMITTED INPATIENT Is pt being admited?: Yes Does the pt Need Aspirin: Yes Condition: Good Referrals: LOLY HERRERA MD [Primary Care Provider] - 3-5 Days
[2021-08-05 16:26] LABS: BUN/Creatinine Ratio 19
[2021-08-05] MEDS ORDERED: LACTATED RINGERS 1,000 ML IV ONE (16:38)
--- NOTE | 2021-08-05 16:56 | Cat Scan Report ---
CT BRAIN: 08/05/2021 INDICATION / CLINICAL INFORMATION: head pressure, dec hearing L ear, near syncope. COMPARISON: None available. FINDINGS: BRAIN/INTRACRANIAL STRUCTURES: Unenhanced CT images of the brain demonstrate no evidence of acute abn ormality. Ventricles and sulci are normal in size and shape for a patient of this age. There is no CT evidence of acute ischemic injury, hemorrhage, or mass. There are no abnormal extra-ax ial fluid collections. There is no gross abnormality of the temporal bones noted. EXTRACRANIAL STRUCTURES: Unremarkable. IMPRESSION: Negative unenhanced CT of the brain. All CT scans at this location are performed using dose reduction to ALARA by means of automated expos ure control. Signer Name: Nadeem Rivera MD Signed: 08/05/2021 4:51 PM Workstation Name: [id number]
--- NOTE | 2021-08-05 17:54 | Consultation ---
Medications and Allergies Allergies Allergy/AdvReac Type Severity Reaction Status Date / Time No Known Allergies Allergy Unverified 03/08/19 16:39 Home Medications Medication Instructions Recorded Confirmed Last Taken Type Ciprofloxacin HCl [Ciprofloxacin 500 mg PO Q12HR #20 tab 03/09/19 Unknown Rx TAB] Naproxen [Naprosyn] 500 mg PO TID PRN #20 tablet 03/09/19 Unknown Rx Ondansetron [Zofran Odt] 4 mg PO Q8HR PRN #20 tab.rapdis 03/09/19 Unknown Rx Polyethylene Glycol/Elect 4,000 ml PO ONCE #1 bottle 03/09/19 Unknown Rx [Golytely] Physical Examination - Vital Signs Vital Signs: Vital Signs Temp Pulse Resp BP Pulse Ox 97.7 F 78 18 152/101 97 08/05/21 14:56 08/05/21 14:56 08/05/21 14:56 08/05/21 14:56 08/05/21 14:56 Results - Laboratory Findings CBC and BMP: 08/05/21 15:45 08/05/21 15:45 Abnormal Lab Findings: Abnormal Labs 08/05/21 08/05/21 15:45 16:42 [place] % (Auto) 8.9 H HCG, Quant 5.43 H Assessment and Plan [facility] Consult Note # Demographics Consult Type: General Neurology Patient Location: Emergency Room First Name: Unique Last Name: Katalina Date of : 1970 Age: 50 Gender: Female Facility: [facility] Time of Initial Page (Eastern Time): 08/05/2021, 17:03 Time of Return Call (Eastern Time): 08/05/2021, 17:05 # HPI Chief Complaint: Near syncope. History: 50 yo woman with 3 days of bilateral blurry vision, decreased hearing in left ear, and feeling off balance. She describes recurrent episodes of feeling like she is going to pass out. They are not provoked by any activity and can occur when sitting or standing. They have never caused her to pass out. She denies any headache. CT head negative. # PMH-FH-SH Past Medical History: hypertension Chronic low back pain Social History: non-smoker non-drinker Medications: Hydrocodone, Duloxetine, Meloxicam Allergies: NKDA # Assessment Impression: Recurent episodes of near syncope, blurry vision. Broad differential includes posterior circulation event, inner ear disease, cardiac. # Plan Thrombolytic/Intervention: NOT IV Thrombolysis or IA Intervention candidate Thrombolytic Exclusion: > 4.5 hours Intraarterial Exclusion: other Symptoms not suggestive of LVO Imaging: (urgency: routine): MR Angiogram Head without contrast MR Angiogram Neck with contrast MRI Brain without contrast Diagnostic Test: echo with bubble study DVT Prophylaxis: SCD chemical DVT prophylaxis Other: permissive hypertension telemetry monitoring would not pursue stroke work-up if MRI is negative Disposition: admit # Logistics Telemedicine: Interactive 2 way audio and visual telecommunication technology was utilized during this visit
--- NOTE | 2021-08-05 17:57 | History and Physical Report ---
History of Present Illness Chief complaint: I almost passed out, my vision is blurry, and I cannot hear History of present illness: 50 YO Female with Obesity Hypoventilation Syndrome presents to ED for evaluation. Pt reports " I almost passed out, made vision is blurry, and I cannot hear on my left side". Patient states that she has experienced blurred vision, balance difficulty, and diminished hearing on the left side over the past 3 days with persistent symptoms over the same timeframe. Patient transported to [facility] via private vehicle for further care and evaluation of the aforementioned symptoms. The patient was seen and evaluated in the emergency department. All lab and imaging studies reviewed. Patient was found to have a neurologic deficit at time of admission. A code stroke was called. Teleneurol ogy consulted. The patient was placed in observation status and initiated on stroke protocol. Patient denies fever, chills, chest pain, palpitation, productive cough, skin rash, recent ill contacts, or known exposure to COVID-19. No prior admission for review. All medication listed at time of admission has been reconciled. Past History Past Medical History: other (See HPI) Past Surgical History: hysterectomy Social history: , lives with family Family history: hypertension Medications and Allergies Allergies Allergy/AdvReac Type Severity Reaction Status Date / Time No Known Allergies Allergy Unverified 03/08/19 16:39 Home Medications Medication Instructions Recorded Confirmed Last Taken Type Ciprofloxacin HCl [Ciprofloxacin 500 mg PO Q12HR #20 tab 03/09/19 Unknown Rx TAB] Naproxen [Naprosyn] 500 mg PO TID PRN #20 tablet 03/09/19 Unknown Rx Ondansetron [Zofran Odt] 4 mg PO Q8HR PRN #20 tab.rapdis 03/09/19 Unknown Rx Polyethylene Glycol/Elect 4,000 ml PO ONCE #1 bottle 03/09/19 Unknown Rx [Golytely] Review of Systems Constitutional: no weight loss, no weight gain, no fever, no chills Eyes: bilateral: blurred vision Ears, nose, mouth and throat: no ear pain, no ear discharge, no decreased hearing Breasts: no swelling, no mass Cardiovascular: no chest pain, no palpitations, no rapid/irregular heart beat, no edema Respiratory: no cough, no cough with sputum, no hemoptysis Gastrointestinal: no abdominal pain, no nausea, no diarrhea, no change in bowel habits, no hematemesis Genitourinary Female: no pelvic pain, no flank pain, no dysuria, no urinary frequency, no urgency Rectal: no pain, no incontinence, no bleeding Musculoskeletal: no neck stiffness, no neck pain, no arm numbness/tingling, no low back pain Integumentary: no rash, no pruritis, no sores, no wounds, no jaundice Neurological: no head injury, no paralysis, no weakness, no numbness, no seizures, no syncope Psychiatric: no anxiety, no change in sleep habits, no insomnia, no change in appetite, no change in libido, no suicidal ideation Endocrine: no cold intolerance, no polydipsia, no nocturia, no weight change Hematologic/Lymphatic: no easy bruising, no lymphadenopathy Allergic/Immunologic: no urticaria, no wheezing, no persistent infections, no angioedema Exam - Constitutional Vitals: Temp Pulse Resp BP Pulse Ox 97.7 F 78 18 152/101 100 08/05/21 14:56 08/05/21 14:56 08/05/21 14:56 08/05/21 14:56 08/05/21 15:10 General appearance: Present: mild distress, obese - EENT Eyes: Present: PERRL ENT: hearing intact, clear oral mucosa - Neck Neck: Present: supple, normal ROM - Respiratory Respiratory effort: normal Respiratory: bilateral: CTA - Cardiovascular Heart Sounds: Present: S1 & S2. Absent: rub, click - Extremities Extremities: pulses symmetrical, No edema Peripheral Pulses: within normal limits - Abdominal General gastrointestinal: Present: soft, non-tender, non-distended, normal bowel sounds Female genitourinary: Present: normal - Integumentary Integumentary: Present: clear, warm, dry - Musculoskeletal Musculoskeletal: gait normal, strength equal bilaterally - Psychiatric Psychiatric: appropriate mood/affect, intact judgment & insight - Neurologic Neurologic: CNII-XII intact, moves all extremities HEART Score - HEART Score Troponin: Troponin T < 0.010 ng/mL (0.00-0.029) 08/05/21 15:45 Results - Labs CBC & Chem 7: 08/05/21 15:45 08/05/21 15:45 Labs: Abnormal lab results 08/05/21 08/05/21 Range/Units 15:45 16:42 [place] % (Auto) 8.9 H (0.0-7.3) % HCG, Quant 5.43 H (0-4) mIU/mL Assessment and Plan - Patient Problems (1) CVA (cerebral vascular accident) Current Visit: Yes Status: Acute Plan to address problem: CVA protocol: Teleneurology consulted, CT scan head, CTA head, CTA neck, echocardiogram, carotid Doppler, antiplatelet therapy, lipid panel, statin therapy, remote telemetry, (2) Hearing problem of left ear Current Visit: Yes Status: Acute Plan to address problem: Suspect secondary to vertigo/Mnire's disease, supportive care. (3) History of unsteady gait Current Visit: Yes Status: Acute (4) Visual disturbance Current Visit: Yes Status: Acute Plan to address problem: CT scan head, CTA head, CTA neck, neuro check (5) Mnire's disease Current Visit: Yes Status: Acute Qualifiers: Laterality: left Qualified Code(s): H81.02 - Meniere's disease, left ear Plan to address problem: Whitney-Hallpike test, CT scan head, neuro check, vestibular rehab (6) DVT prophylaxis Current Visit: Yes Status: Acute Plan to address problem: SCD to bilateral lower extremities while in bed, patient is amatory
[2021-08-05] MEDS ORDERED: ASPIRIN 81 MG TAB CHEW PO ONE (18:14)
[2021-08-05] MEDS ORDERED: MAGNESIUM HYDROXIDE (MOM) ORAL LIQD UDC PO PRN ×2 (18:48→18:50)
[2021-08-05] MEDS ORDERED: ONDANSETRON 4 MG/2 ML INJ IV PRN ×2 (18:48→18:50)
[2021-08-05] MEDS ORDERED: PROMETHAZINE 25 MG RECT SUPP PR PRN ×2 (18:48→18:50)
[2021-08-05] MEDS ORDERED: METOCLOPRAMIDE 10 MG TAB PO PRN ×2 (18:48→18:50)
[2021-08-05] MEDS ORDERED: ACETAMINOPHEN 325 MG TAB PO PRN ×2 (18:48→18:50)
[2021-08-05] MEDS ORDERED: oxyCODONE /ACETAMINOPHEN 5-325MG TAB PO PRN (18:50)
[2021-08-05] MEDS ORDERED: HYDROmorphone 1 MG/1 ML INJ IV PRN (18:50)
--- NOTE | 2021-08-05 18:51 | Cat Scan Report ---
CTA NECK WITH CONTRAST 08/05/2021 INDICATION / CLINICAL INFORMATION: Ataxia, visual changes, hearing loss. COMPARISON: None. TECHNIQUE: Routine CTA of the neck is performed. 3-D/MIP reformats were postprocessed. Percentage st enosis is determined by direct quantitative measurements of diseased internal carotid artery diameter compared with normal distal internal carotid artery reference segments or by criteria similar to DIANA CET where applicable. All CT scans at this location are performed using CT dose reduction for ALARA b y means of automated exposure control. CONTRAST: 100 ml of iodinated contrast FINDINGS: Carotid bifurcations: There is no evidence of carotid bifurcation stenosis or abnormality. Carotid arteries: No significant abnormality. Cervical vertebral arteries: Left vertebral artery is hypoplastic, consistent with normal anatomic va riation. Right is unremarkable. Aortic arch: No significant abnormality. None. IMPRESSION: No significant abnormality. Signer Name: Nadeem Rivera MD Signed: 08/05/2021 6:46 PM Workstation Name: [id number]
--- NOTE | 2021-08-05 18:53 | Cat Scan Report ---
CTA HEAD WITH CONTRAST 08/05/2021 HISTORY: cva symptoms. COMPARISON: None. TECHNIQUE: All CT scans at this location are performed using CT dose reduction for ALARA by means of automated exposure control.. 3-D/MIP reformats postprocessed. Percentage stenosis is determined by d irect quantitative measurements of diseased internal carotid artery diameter compared with normal dis joanna internal carotid artery reference segments or by criteria similar to NASCET where applicable. CONTRAST: 100 ml of contrast material FINDINGS: CTA HEAD: Intracranial vertebral arteries: No significant abnormality. Basilar artery: No significant abnormality. Posterior cerebral arteries: No significant abnormality. Intracranial internal carotid arteries: No significant abnormality. Anterior cerebral arteries: No significant abnormality. Middle cerebral arteries: No significant abnormality. Dural venous sinuses:Not optimally opacified. No significant abnormality. Additional findings: None. IMPRESSION: 1. No significant abnormality. Signer Name: Nadeem Rivera MD Signed: 08/05/2021 6:48 PM Workstation Name: [id number]
[2021-08-06 06:48] LABS: Chol/HDL Ratio 4.86 %
[2021-08-06] MEDS ORDERED: ASPIRIN 325 MG TAB PO SCH (10:00)
--- NOTE | 2021-08-06 11:21 | Vascular Lab Report ---
DUPLEX DOPPLER ULTRASOUND CAROTID, BILATERAL INDICATION / CLINICAL INFORMATION: stroke. COMPARISON: None available. FINDINGS: RIGHT CAROTID: - PLAQUE ESTIMATE (%): < 50% - CCA velocity: 82 cm/sec. - ICA peak systolic velocity: 90 cm/sec. - ICA/CCA PSV Ratio: 1.1 Right Vertebral Artery: Antegrade flow. LEFT CAROTID: Mild plaque - PLAQUE ESTIMATE: < 50% - CCA velocity: 108 cm/sec. - ICA peak systolic velocity: 96 cm/sec. - ICA/CCA PSV Ratio: 0.89 Left Vertebral Artery: Antegrade flow. IMPRESSION: 1. Right Internal Carotid Artery: Less than 50% diameter stenosis. 2. Left Internal Carotid Artery: Less than 50% diameter stenosis. Velocity criteria are extrapolated from diameter data as defined by the Society of Radiologists in Ul trasound Consensus Conference, Radiology 2003; 229;340-346. NO STENOSIS (NORMAL) * Plaque = none; ICA PSV < 125 cm/sec; ICA/CCA PSV Ratio < 2.0 <50% STENOSIS * Plaque < 50%; ICA PSV < 125 cm/sec; ICA/CCA PSV Ratio < 2.0 50-69% STENOSIS * Plaque > 50%; ICA PSV = 125-230 cm/sec; ICA/CCA PSV Ratio = 2.0-4.0 >70% BUT <100% STENOSIS * Plaque > 50%; ICA PSV > 230 cm/sec; ICA/CCA PSV Ratio > 4.0 NEAR OCCLUSION * Plaque = visible lumen; ICA PSV = high/low/none; ICA/CCA PSV Ratio = variable TOTAL OCCLUSION * Plaque = no lumen; ICA PSV = none; ICA/CCA PSV Ratio = N/A Signer Name: Mahesh Seals MD Signed: 08/06/2021 11:16 AM Workstation Name: [facility]
--- NOTE | 2021-08-06 11:51 | Progress Note ---
Hospitalist Physical - Constitutional Vitals: Temp Pulse Resp BP Pulse Ox 97.7 F 79 16 113/60 99 08/05/21 14:56 08/06/21 01:46 08/06/21 01:46 08/06/21 01:46 08/06/21 04:22 General appearance: Present: mild distress, obese HEART Score - HEART Score Troponin: Troponin T < 0.010 ng/mL (0.00-0.029) 08/05/21 15:45 Results - Labs CBC & Chem 7: 08/05/21 15:45 08/05/21 15:45 Labs: Laboratory Last Values WBC 5.8 K/mm3 (4.5-11.0) 08/05/21 15:45 RBC 4.44 M/mm3 (3.65-5.03) 08/05/21 15:45 Hgb 13.8 gm/dl (10.1-14.3) 08/05/21 15:45 Hct 40.5 % (30.3-42.9) 08/05/21 15:45 MCV 91 fl (79-97) 08/05/21 15:45 MCH 31 pg (28-32) 08/05/21 15:45 MCHC 34 % (30-34) 08/05/21 15:45 RDW 14.2 % (13.2-15.2) 08/05/21 15:45 Plt Count 343 K/mm3 (140-440) 08/05/21 15:45 Lymph % (Auto) 30.0 % (13.4-35.0) 08/05/21 15:45 [place] % (Auto) 8.9 % (0.0-7.3) H 08/05/21 15:45 Eos % (Auto) 2.3 % (0.0-4.3) 08/05/21 15:45 Baso % (Auto) 0.4 % (0.0-1.8) 08/05/21 15:45 Lymph # (Auto) 1.8 K/mm3 (1.2-5.4) 08/05/21 15:45 [place] # (Auto) 0.5 K/mm3 (0.0-0.8) 08/05/21 15:45 Eos # (Auto) 0.1 K/mm3 (0.0-0.4) 08/05/21 15:45 Baso # (Auto) 0.0 K/mm3 (0.0-0.1) 08/05/21 15:45 Seg Neutrophils % 58.4 % (40.0-70.0) 08/05/21 15:45 Seg Neutrophils # 3.4 K/mm3 (1.8-7.7) 08/05/21 15:45 Sodium 139 mmol/L (137-145) 08/05/21 15:45 Potassium 4.3 mmol/L (3.6-5.0) 08/05/21 15:45 Chloride 101.8 mmol/L (98-107) 08/05/21 15:45 Carbon Dioxide 25 mmol/L (22-30) 08/05/21 15:45 Anion Gap 17 mmol/L 08/05/21 15:45 BUN 13 mg/dL (7-17) 08/05/21 15:45 Creatinine 0.7 mg/dL (0.6-1.2) 08/05/21 15:45 Estimated GFR > 60 ml/min 08/05/21 15:45 BUN/Creatinine Ratio 19 % 08/05/21 15:45 Glucose 98 mg/dL (65-100) 08/05/21 15:45 Calcium 9.5 mg/dL (8.4-10.2) 08/05/21 15:45 Magnesium 2.00 mg/dL (1.7-2.3) 08/05/21 16:42 Total Bilirubin 0.40 mg/dL (0.1-1.2) 08/05/21 15:45 AST 22 units/L (5-40) 08/05/21 15:45 ALT 22 units/L (7-56) 08/05/21 15:45 Alkaline Phosphatase 75 units/L (35-129) 08/05/21 15:45 Total Creatine Kinase 92 units/L (30-135) 08/05/21 15:45 Troponin T < 0.010 ng/mL (0.00-0.029) 08/05/21 15:45 Total Protein 8.1 g/dL (6.3-8.2) 08/05/21 15:45 Albumin 4.5 g/dL (3.9-5) 08/05/21 15:45 Albumin/Globulin Ratio 1.3 % 08/05/21 15:45 Triglycerides 135 mg/dL (2-149) 08/06/21 06:10 Cholesterol 209 mg/dL (50-199) H 08/06/21 06:10 LDL Cholesterol Direct 146 mg/dL (50-130) H 08/06/21 06:10 HDL Cholesterol 43 mg/dL (40-59) 08/06/21 06:10 Cholesterol/HDL Ratio 4.86 % 08/06/21 06:10 TSH 0.569 mlU/mL (0.270-4.200) 08/05/21 16:42 HCG, Quant 5.43 mIU/mL (0-4) H 08/05/21 16:42 Active Medications - Current Medications Current Medications: Generic Name Dose Route Start Last Admin Trade Name Freq PRN Reason Stop Dose Admin Acetaminophen 650 mg 08/05/21 18:50 Acetaminophen 325 Mg Tab PO Q4H PRN Pain, Mild (1-3) Aspirin 325 mg 08/06/21 10:00 08/06/21 09:14 Aspirin 325 Mg Tab PO 325 mg QDAY SHY Administration Atorvastatin Calcium 40 mg 08/05/21 22:00 08/05/21 21:44 Atorvastatin 40 Mg Tab PO 40 mg QHS SHY Administration Bisacodyl 10 mg 08/05/21 18:50 Bisacodyl 10 Mg Rect Supp NV QDAY PRN Constipation Hydromorphone HCl 0.5 mg 08/05/21 18:50 Hydromorphone 1 Mg/1 Ml Inj IV Q23H PRN Pain , Severe (7-10) Magnesium Hydroxide 30 ml 08/05/21 18:50 Magnesium Hydroxide (Mom) Oral Liqd Udc PO Q4H PRN Constipation Metoclopramide HCl 10 mg 08/05/21 18:50 Metoclopramide 10 Mg Tab PO Q6H PRN Nausea And Vomiting Ondansetron HCl 4 mg 08/05/21 18:50 Ondansetron 4 Mg/2 Ml Inj IV Q8H PRN Nausea And Vomiting Oxycodone/Acetaminophen 1 tab 08/05/21 18:50 Oxycodone /Acetaminophen 5-325mg Tab PO Q16H PRN Pain, Moderate (4-6) Promethazine HCl 25 mg 08/05/21 18:50 Promethazine 25 Mg Rect Supp NV Q6H PRN Nausea And Vomiting Sodium Chloride 10 ml 08/05/21 18:50 Sodium Chloride 0.9% 10 Ml Flush Syringe IV PRN PRN LINE FLUSH
[2021-08-06 13:25] VITALS: BP 131/72
--- NOTE | 2021-08-06 16:59 | Discharge Summary ---
Providers - Providers Date of Admission: 08/05/21 18:50 Attending physician: LEONARDO PENALOZA MD 08/05/21 18:48 Occupational Therapy Evaluate and Treat [CONS] Routine Comment: Reason For Exam: Neuro deficits Physical Therapy Evaluation and Treat [CONS] Routine Comment: Whitney Hallpike Test Reason For Exam: Neuro deficits 08/05/21 18:50 Occupational Therapy Evaluate and Treat [CONS] Routine Comment: Reason For Exam: Neuro deficits Physical Therapy Evaluation and Treat [CONS] Routine Comment: Reason For Exam: Neuro deficits 08/06/21 10:25 Consult to Physician [CONS] Routine Comment: Consulting Provider: HOMA JAY Physician Instructions: Reason For Exam: vertigo Primary care physician: LOLY HERRERA Hospitalization Reason for admission: Dizziness Condition: Good Hospital course: 50 YO Female with Obesity Hypoventilation Syndrome presents to ED for evaluation. Pt reports " I almost passed out, made vision is blurry, and I cannot hear on my left side". Patient states that she has experienced blurred vision, balance difficulty, and diminished hearing on the left side over the past 3 days with persistent symptoms over the same timeframe. Patient transported to [facility] via private vehicle for further care and evaluation of the aforementioned symptoms. The patient was seen and evaluated in the emergency department. All lab and imaging studies reviewed. Patient was found to have a neurologic deficit at time of admission. A code stroke was called. Teleneurology consulted. The patient was placed in observation status and initiated on stroke protocol. Patient denies fever, chills, chest pain, palpitation, productive cough, skin rash, recent ill contacts, or known exposure to COVID-19. No prior admission for review. All medication listed at time of admission has been reconciled. 08/06: Patient demanded to be discharged today. States she will follow up with her primary physician. She refused IV fluids to correct orthostasis. She states that this happens every now and then. Risk discussed intense detail with the patient she signed AMA form (1) vertigo secondary to underlying presumed Mnire's disease with positive orthostatic hypotension (2) Hearing problem of left ear Current Visit: Yes Status: Acute Plan to address problem: Suspect secondary to vertigo/Mnire's disease, supportive care. (3) History of unsteady gait Current Visit: Yes Status: Acute (4) Visual disturbance Current Visit: Yes Status: Acute Plan to address problem: CT scan head, CTA head, CTA neck, neuro check (5) Mnire's disease Current Visit: Yes Status: Acute Qualifiers: Laterality: left Qualified Code(s): H81.02 - Meniere's disease, left ear Plan to address problem: [place]-Hallpike test, CT scan head, neuro check, vestibular rehab Disposition: 07 LEFT AGAINST MEDICAL ADVICE Final Discharge Diagnosis (Prints w/discharge instructions): vertigo secondary to underlying presumed Mnire's disease with positive orthostatic hypotension Time spent for discharge: 30 mins Core Measure Documentation - Palliative Care Palliative Care/ Comfort Measures: Not Applicable - Core Measures Any of the following diagnoses?: none Exam - Physical Exam Narrative exam: General appearance: Present:no distress - EENT Eyes: Present: PERRL ENT: hearing intact, clear oral mucosa - Neck Neck: Present: supple, normal ROM - Respiratory Respiratory effort: normal Respiratory: bilateral: CTA - Cardiovascular Heart Sounds: Present: S1 & S2. Absent: rub, click - Extremities Extremities: pulses symmetrical, No edema Peripheral Pulses: within normal limits - Abdominal General gastrointestinal: Present: soft, non-tender, non-distended, normal bowel sounds Female genitourinary: Present: normal - Integumentary Integumentary: Present: clear, warm, dry - Musculoskeletal Musculoskeletal: gait normal, strength equal bilaterally - Psychiatric Psychiatric: appropriate mood/affect, intact judgment & insight - Neurologic Neurologic: CNII-XII intact, moves all extremities - Constitutional Vitals: Temp Pulse Resp BP Pulse Ox 98.7 F 79 16 131/72 98 08/06/21 11:43 08/06/21 11:43 08/06/21 11:43 08/06/21 11:43 08/06/21 11:43 Plan Follow up with: LOLY HERRREA MD [Primary Care Provider] - 3-5 Days
--- NOTE | 2021-08-13 10:19 | Electrocardiograph Report ---
[facility] Test Date: 2021-08-05 Test Time: 15:16:12 Pat Name: NATHANIEL FIELDS Department: Room: A385 1 Gender: F Network Engineer Administrator: FATIMAH : 1970 Requested By: TERE COOPER Order Number: [id number] Reading MD: Rosamaria Gonzáles Measurements Intervals [place] Rate: 72 P: 57 IA: 143 QRS: 18 QRSD: 89 T: 45 QT: 382 QTc: 418 Interpretive Statements Sinus rhythm No previous ECG available for comparison Electronically Signed On 08-13-2021 10:19:06 EDT by Rosamaria Gonzáles
--- NOTE | 2021-08-13 10:20 | Electrocardiograph Report ---
[facility] Test Date: 2021-08-05 Test Time: 18:06:28 Pat Name: NATHANIEL FIELDS Department: Room: A385 1 Gender: F Electric Repair Supervisor: JEANIE : 1970 Requested By: LEONARDO PENALOZA Order Number: [id number] Reading MD: Rosamaria Gonzáles Measurements Intervals [place] Rate: 75 P: 55 [place]: 145 QRS: 21 QRSD: 99 T: 49 QT: 382 QTc: 426 Interpretive Statements Sinus rhythm Probable left atrial enlargement Compared to ECG 08/05/2021 15:16:12 No significant changes Electronically Signed On 08-13-2021 10:20:16 EDT by Rosamaria Gonzáles
== END 2021-08-06 16:15 | disposition left against medical advice (07) | DRG 312 ==
LOC: ED 14:30 → 3A 18:50
PROVIDERS: ADMIT Internal Medicine; ATTEND Internal Medicine
DX: I95.1 Orthostatic hypotension (principal); H81.02 Meniere's disease, left ear; Z90.710 Acquired absence of both cervix and uterus; Z82.49 Family history of ischemic heart disease and other diseases of the circulatory system; H91.8X2 Other specified hearing loss, left ear; Z20.822 Contact with and (suspected) exposure to COVID-19
CPT/HCPCS: 36415; 70450; 70496; 70498; 80053; 80061; 82550; 83735; 84443; 84484; 84702; 85025; 93005; 93306; 93880; G0378; J7120; Q9967

== ENCOUNTER 2021-08-27 07:29 | Outpatient (CLI) | payer BC ==
--- NOTE | 2021-08-27 09:39 | Magnetic Resonance Report ---
. MRI LEFT FOOT WITHOUT CONTRAST INDICATION / CLINICAL INFORMATION: LEFT FOOT PAIN. TECHNIQUE: Multiplanar, multisequence MR images were obtained. COMPARISON: None available. FINDINGS: A skin marker was placed in the dorsal aspect of the foot at the level of the TMT joints la terally. BONES: No significant bone marrow edema. No fracture. No osseous lesion. JOINTS: There is mild degenerative change in the midfoot articulations. There is also mild DJD in the first MTP joint. No significant joint effusion or synovitis. SUBCUTANEOUS SOFT TISSUES: No significant abnormality. MUSCLES: No significant abnormality. FLEXOR TENDONS: No significant abnormality. EXTENSOR TENDONS: No significant abnormality. LIGAMENTS: No significant abnormality. ADDITIONAL FINDINGS: None. IMPRESSION: 1. Mild degenerative change throughout the mid foot articulations and in the first MTP joint. Signer Name: Timmy Howell MD Signed: 08/27/2021 9:35 AM Workstation Name: [id number]
--- NOTE | 2021-08-27 09:52 | Magnetic Resonance Report ---
MRI BRAIN WITHOUT AND WITH CONTRAST, IAC PROTOCOL INDICATION / CLINICAL INFORMATION: SUDDEN HEARING LOSS,LEFT EAR. TECHNIQUE: Multiplanar, multisequence MR images of the brain were obtained. The institution's "Internal Auditory Canal/Posterior Fossa" MRI protocol was used. 19 mL Clariscan injected. COMPARISON: None available. FINDINGS: CP ANGLE/INTERNAL AUDITORY CANALS: No abnormal cerebellopontine angle mass, enhancement or signal int ensity. LABYRINTHINE STRUCTURES: No significant abnormality. MASTOID AERATION: No significant abnormality. ADDITIONAL TEMPORAL BONE ABNORMALITIES: None. REMAINDER OF BRAIN / INTRACRANIAL CONTENTS: No acute ischemia, acute hemorrhage, mass effect, midline shift, or hydrocephalus. No chronic infarct or significant atrophy. No significant demyelinating ch anges. CRANIOCERVICAL JUNCTION: No significant abnormality. VASCULAR FLOW-VOIDS: No significant abnormality. ORBITS: No significant abnormality of visualized orbits. PARANASAL SINUSES: No significant abnormality of visualized sinuses and mastoid air cells. ADDITIONAL FINDINGS: None. IMPRESSION: 1. No findings to explain patient's symptoms. Signer Name: Timmy Howell MD Signed: 08/27/2021 9:47 AM Workstation Name: [id number]
== END 2021-08-27 07:30 | disposition home or self-care (01) ==
LOC: MRI 07:29
PROVIDERS: ATTEND Internal Medicine
DX: M19.072 Primary osteoarthritis, left ankle and foot (principal); H91.22 Sudden idiopathic hearing loss, left ear; M66.262 Spontaneous rupture of extensor tendons, left lower leg
CPT/HCPCS: 70553; 73718; A9575

== ENCOUNTER 2022-01-12 10:47 | Outpatient (CLI) | payer BC ==
--- NOTE | 2022-01-12 14:37 | Magnetic Resonance Report ---
MRI LUMBAR SPINE 01/12/2022 INDICATION / CLINICAL INFORMATION: M54.16,LOWER BACK PAIN. COMPARISON: None available. FINDINGS: GENERAL OBSERVATIONS: Unenhanced MR images of the lumbar spine were obtained. There is no evidence of acute abnormality. Vertebral body height and alignment is well preserved. [id number] ANALYSIS: L5-S1: Mild diffuse disc bulging and moderate facet degenerative changes. Central canal diameter is w ell preserved. Moderately severe bilateral foraminal narrowing is present, more pronounced on the lef t. L4-5: Mild symmetric diffuse disc bulging and mild facet degenerative changes. L3-4: Unremarkable. L2-3: Mild symmetric diffuse disc bulging. L1-2: Unremarkable. BONE MARROW: No significant abnormality. SPINAL CORD/CAUDA EQUINA: Normal PARASPINAL SOFT TISSUES: No significant abnormality. IMPRESSION: Bilateral foraminal narrowing due to degenerative changes at L5-S1. Signer Name: Nadeem Rivera MD Signed: 01/12/2022 2:32 PM Workstation Name: [id number]
== END 2022-01-12 10:48 | disposition home or self-care (01) ==
LOC: MRI 10:47
PROVIDERS: ATTEND Anesthesiology
DX: M51.17 Intervertebral disc disorders with radiculopathy, lumbosacral region (principal); M48.07 Spinal stenosis, lumbosacral region
CPT/HCPCS: 72148

== ENCOUNTER 2022-07-23 08:42 | Outpatient (CLI) | payer BC ==
--- NOTE | 2022-07-23 10:24 | Magnetic Resonance Report ---
MRI lumbar spine without contrast INDICATION: Radiculopathy TECHNIQUE: Axial and sagittal images COMPARISON: 01/12/2022 FINDINGS: Alignment appears normal. Conus appears normal. Mild heterogeneity in the bone marrow L1-L2: No spinal canal narrowing or neuroforaminal narrowing L2-L3: Minimal retrolisthesis with disc desiccation with facet hypertrophy. Broad-based posterior dis c bulge with bilateral lateral recess narrowing. No severe neuroforaminal narrowing. No significant c hange. L3-L4: Facet hypertrophy. No spinal canal narrowing or neuroforaminal narrowing L4-L5: Disc desiccation endplate change. There is a broad-based posterior disc bulge asymmetric to th e right. Moderate right lateral recess narrowing with mild to moderate right neuroforaminal narrowing . Mild left lateral recess narrowing left neuroforaminal narrowing L5-S1: Endplate change. Mild retrolisthesis. Disc desiccation with posterior disc herniation. Severe left and moderate right lateral recess narrowing or neuroforaminal narrowing IMPRESSION: Multilevel discogenic degenerative change most significant L4-5 and L5-S1. Please see above. Signer Name: Mahesh Seals MD Signed: 07/23/2022 10:20 AM Workstation Name: [email or web address]
--- NOTE | 2022-07-23 15:58 | Cat Scan Report ---
CT lumbar spine wo con INDICATION / CLINICAL INFORMATION: 51 years Female; M54.16 LUMBAR RADICULOPATHY. TECHNIQUE: Axial CT images of the lumbar spine were obtained. Sagittal and coronal reformatted images were prod uced. All CT scans at this location are performed using CT dose reduction for ALARA by means of autom ated exposure control. COMPARISON: MRI-01/12/2022 FINDINGS: POST-SURGICAL CHANGES: None. ALIGNMENT: Mild listhesis seen at L2-3. VERTEBRAE: No signs of fracture. Vertebral bodies are grossly normal in height throughout. [id number] ANALYSIS: Disc space narrowing and vacuum phenomenon seen at L4-5 and L5-S1. L1-2: No significant canal stenosis, subarticular zone stenosis, or foraminal narrowing. L2-3: Mild disc bulge. Mild to moderate foraminal narrowing bilaterally because of the listhesis. Th ere is encroachment upon L2 nerves without definitive impingement. Similar findings seen on prior. L3-4: Mild disc bulge and mild facet hypertrophy. Mild canal and subarticular zone narrowing. Mild f oraminal narrowing. L4-5: Mild disc bulge. Mild facet hypertrophy. Mild subarticular zone narrowing bilaterally, which m ay encroach upon L5 nerves. Small foraminal/extra foraminal disc protrusion spondylosis seen on the r ight, which encroaches upon the lateral foraminal/extra foraminal right L4 nerve. [id number] fo raminal narrowing on the left. Similar type findings seen on prior. L5-S1: Mild disc bulge and [id number]-[id number] facet hypertrophy. Moderate to marked foraminal narrowin g bilaterally from facet hypertrophy, with encroachment upon and flattening of the L5 nerves. Small s ynovial cyst is suggested in the medial foraminal region on the left. This finding is seen on prior s yesy. PARASPINAL SOFT TISSUES: No significant abnormality. ADDITIONAL FINDINGS: Nephrolithiasis seen on the left, measuring 5 mm in maximum dimension. IMPRESSION: 1. Degenerative changes of the lumbar spine as described above. Most marked findings appear to be at L5-S1 and L4-5. Please correlate with dermatomal distribution of patient's symptoms, if present. 2. Left nephrolithiasis. Signer Name: Hudson Goodwin MD, III Signed: 07/23/2022 3:53 PM Workstation Name: [id number]
== END 2022-07-23 08:43 | disposition home or self-care (01) ==
LOC: CT 08:42
PROVIDERS: ATTEND Psychiatry & Neurology Neurology
DX: M47.27 Other spondylosis with radiculopathy, lumbosacral region (principal); M51.27 Other intervertebral disc displacement, lumbosacral region; M43.17 Spondylolisthesis, lumbosacral region; N20.0 Calculus of kidney
CPT/HCPCS: 72131; 72148